=== PATIENT | male | born 1970 | race Caucasian/White ===

== ENCOUNTER 2017-10-19 17:03 | Emergency (ER) | payer BC ==
[2017-10-19 17:11] VITALS: TEMP 98.5
[2017-10-19] MEDS ORDERED: DIPH,PERTUS(ACELL)TETVAC-LF 0.5 ML VIAL IM ONE (17:55)
[2017-10-19] MEDS ORDERED: LIDOCAINE 1% INJ 10MG/ML (20 ML MDV) SQ STA (17:55)
--- NOTE | 2017-10-19 17:59 | ED ---
General Adult HPI - General Chief complaint: Wound/Laceration Stated complaint: lt hand lac Time Seen by Provider: 10/19/17 17:44 Source: patient, RN notes reviewed Mode of arrival: ambulatory Limitations: no limitations - History of Present Illness Initial comments: Patient is a 47-year-old male presenting to the emergency room today with a chief complaint of laceration to the left hand that occurred just prior to arrival. He does admit that he was using at when he accidentally cut the base of the left thumb and left index finger. Patient states some shortness tetanus status. He admits that pain is located to these 2 areas. He states he does have full range of motion. He denies any other complaints or symptoms. - Related Data Previous Rx's Medication Instructions Recorded Cephalexin [Keflex] 500 mg PO Q12HR 10 Days cap 10/19/17 Ibuprofen [Motrin] 800 mg PO Q6HR #30 tab 10/19/17 Allergies Allergy/AdvReac Type Severity Reaction Status Date / Time No Known Allergies Allergy Verified 10/19/17 17:49 Review of Systems ROS Statement: Those systems with pertinent positive or pertinent negative responses have been documented in the HPI. ROS Other: All systems not noted in ROS Statement are negative. Past Medical History Past Medical History: No Reported History History of Any Multi-Drug Resistant Organisms: None Reported Past Surgical History: No Surgical Hx Reported Past Psychological History: No Psychological Hx Reported Smoking Status: Current every day smoker Past Alcohol Use History: Occasional Past Drug Use History: None Reported General Exam - General Exam Comments Initial Comments: General: The patient is awake and alert, in no distress, and does not appear acutely ill. Neck: The neck is supple, there is no tenderness or JVD. Musculoskeletal: Patient does have full range of motion of the left hand and digits. Sensations are intact. Radial pulses 2+. Strength 5/5. Neurological: A&O x 3. CN II-XII intact, There are no obvious motor or sensory deficits. Coordination appears grossly intact. Speech is normal. Skin: Skin is warm and dry and no rashes or lesions are noted. Psychiatric: Normal mood and affect. Limitations: no limitations Course Vital Signs 10/19/17 17:09 Temperature 98.5 F Pulse Rate 84 Respiratory 18 Rate Blood Pressure 131/80 O2 Sat by Pulse 98 Oximetry Procedures - Procedures Initial comment: Patient does have a 2 cm circumferential laceration to the tip of the left index finger. Approximately 80% round the tip. No tendon involvement. Area was anesthetized with digital block with 1% lidocaine. The area was heavily irrigated under pressure with saline. 4-0 nylon was used. A total of 6 sutures were placed. Second laceration to the posterior aspect of the left thumb over the DIP joint area. Laceration superficial no active bleeding. Measures approximately a centimeter. Shows full range of motion. Strength 5/5 in this area. There is a distal tip abrasion/laceration that is unsuturable. Medical Decision Making - Medical Decision Making X-rays reviewed and does show tuft involvement of the left index finger. Patient will be given dose of Ancef here in the emergency room continued on antibiotics. Advised follow up with orthopedics. Tetanus is been updated. Advised to watch for any signs of infection return to emergency room for any other concerns. Disposition Clinical Impression: Laceration Disposition: HOME SELF-CARE Condition: Good Instructions: Laceration (ED) Additional Instructions: Please follow-up with orthopedics over the next 2 days. Please use antibiotics and pain medicine as prescribed. Please continue change dressing twice daily. Watch for any signs of infection. Have sutures removed in 8-10 days. Return to emergency room for any concerns. Prescriptions: Cephalexin [Keflex] 500 mg PO Q12HR 10 Days cap Ibuprofen [Motrin] 800 mg PO Q6HR #30 tab Is patient prescribed a controlled substance at d/c from ED?: No Referrals: None,Stated [Primary Care Provider] - 1-2 days Amado Chen MD [Medical Doctor] - 1-2 days Time of Disposition: 19:08
--- NOTE | 2017-10-19 18:45 | XR ---
EXAMINATION TYPE: XR finger LT DATE OF EXAM: 10/19/2017 COMPARISON: None HISTORY: Pain and laceration TECHNIQUE: Three-view left index finger FINDINGS: Soft tissue injury is over the distal index finger. There is a fracture of the distal tuft. IMPRESSION: 1. Soft tissue injury with laceration and avulsion of the tuft of the index finger.
[2017-10-19] MEDS ORDERED: ceFAZolin 1,000 MG VIAL IM STA (19:12)
[2017-10-19 19:37] VITALS: BP 145/89; PULSE 76; RESP 16
== END 2017-10-19 19:34 | disposition home or self-care (01) ==
LOC: EC 17:03
DX: S61.412A Laceration without foreign body of left hand, initial encounter (principal); F17.200 Nicotine dependence, unspecified, uncomplicated; Z23 Encounter for immunization; W27.0XXA Contact with workbench tool, initial encounter
CPT/HCPCS: 73140; 90715; 99283; 12001; 90471; 96372; J0690; J2001

== ENCOUNTER → 2020-09-16 | Outpatient (CLI) | payer BC | END | disposition home or self-care (01) | DX: R94.31 Abnormal electrocardiogram [ECG] [EKG] (principal) ==